=== PATIENT | male | born 1990 ===

== ENCOUNTER 2019-01-10 10:23 | Emergency (ER) | payer SELFPAY ==
[2019-01-10 10:34] VITALS: BMI 40.6
[2019-01-10 10:36] VITALS: RESP 18
[2019-01-10] MEDS ORDERED: Oxycodone/Acetaminophen 5/325 mg Tab PO STA (11:29)
--- NOTE | 2019-01-10 11:36 | ED PDOC ---
HPI: Back Time Seen by Provider: 01/10/19 11:34 Chief Complaint (Nursing): Back Pain Chief Complaint (Provider): back pain History Per: Patient (28 y/o male with lower back pain x 2 days noted after repetitive lifting day prior at work. Patient works in construction currently. No dysuria/hematuria/fevers/chills. took 2 advil yesterday and day prior without relief. Has appt with [facility] 01/20[facility] Past Medical History Reviewed: Historical Data, Nursing Documentation, Vital Signs Vital Signs: Last Vital Signs Temp 98.5 F 01/10/19 10:35 Pulse 64 01/10/19 10:35 Resp 18 01/10/19 10:35 BP 155/80 H 01/10/19 10:35 Pulse Ox 99 01/10/19 10:35 - Family History Family History: States: No Known Family Hx - Home Medications Home Medications: Ambulatory Orders Medication Instructions Recorded Naproxen 375 mg PO Q8 PRN #21 tablet 01/10/19 - Allergies Allergies/Adverse Reactions: Allergies Allergy/AdvReac Type Severity Reaction Status Date / Time No Known Allergies Allergy Verified 01/10/19 11:01 Review of Systems ROS Statement: Except As Marked, All Systems Reviewed And Found Negative Musculoskeletal: Positive for: Back Pain Physical Exam - Reviewed Nursing Documentation Reviewed: Yes Vital Signs Reviewed: Yes - Physical Exam Appears: Positive for: Well, Non-toxic, No Acute Distress Head Exam: Positive for: ATRAUMATIC, NORMAL INSPECTION, NORMOCEPHALIC Skin: Positive for: Normal Color, Warm, DRY Eye Exam: Positive for: EOMI, Normal appearance, PERRL ENT: Positive for: Normal ENT Inspection Neck: Positive for: Normal, Painless ROM Cardiovascular/Chest: Positive for: Regular Rate, Rhythm Respiratory: Positive for: CNT, Normal Breath Sounds Gastrointestinal/Abdominal: Positive for: Normal Exam, Soft Back: Positive for: Vertebral Tenderness (paralumbar tenderness bilaterally). Negative for: Normal Inspection Extremity: Positive for: Normal ROM Neurological/Psych: Positive for: Awake, Alert, Normal Tone - ECG O2 Sat by Pulse Oximetry: 99 - Progress ED Course And Treament: TOradol 30 mg IM x 1 dose percocet 5/325 mg x 1 dose Disposition - Clinical Impression Clinical Impression: Low back strain - Patient ED Disposition Is Patient to be Admitted: No - Disposition Disposition: Routine/Home Disposition Time: 11:37 Condition: FAIR Prescriptions: Naproxen 375 mg PO Q8 PRN #21 tablet PRN Reason: Pain, Moderate (4-7) Instructions: Lumbar Muscle Strain (DC) Forms: [facility] ED School/Work Excuse Print Language: DANISH
[2019-01-10] MEDS ORDERED: Oxycodone/Acetaminophen 5/325 mg Tab ONE (12:12)
[2019-01-10 13:10] VITALS: BP 147/87; PULSE 66; TEMP 98.7; O2SAT 100
== END 2019-01-10 13:08 | disposition home or self-care (01) ==
LOC: H.ER 10:23
DX: S39.012A Strain of muscle, fascia and tendon of lower back, initial encounter (principal); X50.0XXA Overexertion from strenuous movement or load, initial encounter; Y99.0 Civilian activity done for income or pay
CPT/HCPCS: 96372; 99283; J1885